=== PATIENT | male | born 2000 | race Caucasian/White ===

== ENCOUNTER 2023-12-05 05:29 | Emergency (ER) | payer SELFPAY ==
[~2023-12-05] VITALS: Ht 167.6 cm; Wt 61.2 kg
[2023-12-05 05:41] VITALS: BP 131/89; PULSE 78; RESP 14; TEMP 98.6; O2SAT 99
[2023-12-05] MEDS ORDERED: LID5T TP (07:21)
[2023-12-05] MEDS ORDERED: IBUP-2213 PO (07:21)
[2023-12-05 07:35] VITALS: BP 134/70; PULSE 88; RESP 18; TEMP 97.3; O2SAT 99
== END 2023-12-05 07:35 ==
LOC: MED 05:29
DX: M54.2 Cervicalgia (principal)
CPT/HCPCS: 72040; 99283